=== PATIENT | female | born 1980 | race Asian ===

== ENCOUNTER 2017-09-28 08:00 | Outpatient (CLI) | payer OTHER ==
[2017-09-28 12:50] LABS: BUN - BLOOD UREA NITROGEN 14 mg/dL (6-20); CALCIUM 9.2 mg/dL (8.5-10.3); CARBON DIOXIDE - CO2 25 mmol/L (21-32); CHLORIDE 104 mmol/L (101-111); CREATININE 0.7 mg/dL (0.4-1.0); GFR - MDRD 93 (>89); GLUCOSE 74 mg/dL (70-100); SODIUM 136 mmol/L (135-145)
== END 2017-09-28 08:01 | disposition home or self-care (01) ==
LOC: LAB.WCP 08:00
PROVIDERS: ATTEND Family Medicine
DX: R00.2 Palpitations (principal)
CPT/HCPCS: 36415; 80048; 84443

== ENCOUNTER 2018-10-22 08:00 | Outpatient (CLI) | payer OTHER ==
[2018-10-22 12:34] LABS: BASOPHILS # (AUTO) 0.1 10^3/uL (0.0-0.1); BASOPHILS % (AUTO) 0.9 %; EOSINOPHILS % (AUTO) 0.4 %; HGB - HEMOGLOBIN 12.9 g/dL (12.0-16.0); LYMPHOCYTES % (AUTO) 27.3 %; MEAN CORPUSCULAR HEMOGLOBIN 26.8 pg (27.0-31.0); MEAN CORPUSCULAR HGB CONC 32.5 g/dL (32.0-36.0); MEAN CORPUSCULAR VOLUME 82.5 fL (81.0-99.0); MEAN PLATELET VOLUME 8.7 fL (7.9-10.8); MONOCYTES # (AUTO) 0.4 10^3/uL (0.0-1.0); MONOCYTES % (AUTO) 6.1 %; NEUTROPHILS # (AUTO) 4.7 10^3/uL (1.5-6.6); NEUTROPHILS % (AUTO) 65.3 %; PLT - PLATELET COUNT 227 10^3/uL (130-450); RED BLOOD COUNT 4.82 10^6/uL (4.20-5.40); RED CELL DISTRIBUTION WIDTH 12.9 % (12.0-15.0); WHITE BLOOD COUNT 7.2 x10^3/uL (4.8-10.8)
[2018-10-22 12:45] LABS: ALBUMIN 4.3 g/dL (3.2-5.5); ALBUMIN/GLOBULIN RATIO 1.2 (1.0-2.2); ALKALINE PHOSPHATASE 39 IU/L (42-121); ALT ALANINE AMINOTRANSFERASE 12 IU/L (10-60); AST ASPARTATE AMINOTRANSFERASE 16 IU/L (10-42); BILIRUBIN,TOTAL 0.9 mg/dL (0.2-1.0); BUN - BLOOD UREA NITROGEN 8 mg/dL (6-20); CALCIUM 9.4 mg/dL (8.5-10.3); CARBON DIOXIDE - CO2 26 mmol/L (21-32); CHLORIDE 100 mmol/L (101-111); CHOL/HDL RATIO 3.5 (<4.4); CHOLESTEROL 218 mg/dL; CREATININE 0.8 mg/dL (0.4-1.0); GFR - MDRD 79 (>89); GLUCOSE 94 mg/dL (70-100); HDL CHOLESTEROL 63 mg/dL; LDL CHOLESTEROL,CALCULATED 144 mg/dL; LDL/HDL RATIO 2.3 (<4.4); SODIUM 137 mmol/L (135-145); VLDL CHOLESTEROL 11 mg/dL
== END 2018-10-22 23:59 | disposition home or self-care (01) ==
LOC: LAB.WCP 08:00
PROVIDERS: ATTEND Family Medicine
DX: Z00.00 Encounter for general adult medical examination without abnormal findings (principal)
CPT/HCPCS: 36415; 80053; 80061; 83721; 85025

== ENCOUNTER 2021-02-14 16:25 | Outpatient (CLI) | payer OTHER | END 2021-02-14 16:26 | disposition home or self-care (01) | LOC: COV 16:25 | PROVIDERS: ATTEND Family Medicine | DX: Z20.822 Contact with and (suspected) exposure to COVID-19 (principal) ==

== ENCOUNTER 2022-07-04 09:02 | Outpatient (CLI) | payer OTHER ==
[2022-07-04 12:08] LABS: BASOPHILS % (AUTO) 0.5 %; EOSINOPHILS # (AUTO) 0.1 10^3/uL (0.0-0.7); EOSINOPHILS % (AUTO) 0.8 %; HCT - HEMATOCRIT 37.5 % (37.0-47.0); HGB - HEMOGLOBIN 11.6 g/dL (12.0-16.0); LYMPHOCYTES # (AUTO) 2.5 10^3/uL (1.5-3.5); LYMPHOCYTES % (AUTO) 42.7 %; MEAN CORPUSCULAR HEMOGLOBIN 24.7 pg (27.0-31.0); MEAN CORPUSCULAR HGB CONC 30.9 g/dL (32.0-36.0); MONOCYTES # (AUTO) 0.4 10^3/uL (0.0-1.0); MONOCYTES % (AUTO) 6.6 %; NEUTROPHILS # (AUTO) 2.9 10^3/uL (1.5-6.6); NEUTROPHILS % (AUTO) 49.1 %; PLT - PLATELET COUNT 269 10^3/uL (130-450); RED BLOOD COUNT 4.69 10^6/uL (4.20-5.40); RED CELL DISTRIBUTION WIDTH 14.6 % (12.0-15.0)
[2022-07-04 13:49] LABS: ALBUMIN 4.3 g/dL (3.2-5.5); ALBUMIN/GLOBULIN RATIO 1.1 (1.0-2.2); ALKALINE PHOSPHATASE 33 IU/L (42-121); ALT ALANINE AMINOTRANSFERASE 17 IU/L (10-60); AST ASPARTATE AMINOTRANSFERASE 17 IU/L (10-42); BILIRUBIN,TOTAL 0.8 mg/dL (0.2-1.0); BUN - BLOOD UREA NITROGEN 11 mg/dL (6-20); CALCIUM 9.7 mg/dL (8.5-10.3); CARBON DIOXIDE - CO2 23 mmol/L (21-32); CHLORIDE 101 mmol/L (101-111); CHOL/HDL RATIO 3.3 (<4.4); CHOLESTEROL 206 mg/dL; CREATININE 0.8 mg/dL (0.4-1.0); GFR - MDRD 78 (>89); GLUCOSE 88 mg/dL (70-100); HDL CHOLESTEROL 63 mg/dL; LDL CHOLESTEROL,CALCULATED 123 mg/dL; SODIUM 137 mmol/L (135-145); TOTAL PROTEIN 8.1 g/dL (6.7-8.2); TRIGLYCERIDES 98 mg/dL; VLDL CHOLESTEROL 20 mg/dL
[2022-07-04 13:55] LABS: THYROID STIMULATING HORMONE 0.99 uIU/mL (0.34-5.60)
== END 2022-07-04 09:03 | disposition home or self-care (01) ==
LOC: LAB.N 09:02
PROVIDERS: ATTEND Physician Assistant
DX: R03.0 Elevated blood-pressure reading, without diagnosis of hypertension (principal); Z13.220 Encounter for screening for lipoid disorders
CPT/HCPCS: 36415; 80053; 80061; 83721; 84443; 85025

== ENCOUNTER 2022-07-28 15:05 | Outpatient (CLI) | payer OTHER ==
--- NOTE | 2022-07-30 12:36 | Mammography Report ---
BILATERAL DIGITAL SCREENING MAMMOGRAM 3D/2D: 07/28/2022 CLINICAL: Baseline exam. Routine screening. No prior exams were available for comparison. Both breasts are heterogeneously dense, which may obscure small masses (category c / 51-75% glandular tissue). There is a 1.9 cm oval asymmetry with an obscured and circumscribed margin in the right breast at 12 o'clock anterior depth. No other significant masses, calcifications, or other findings are seen in either breast. IMPRESSION: INCOMPLETE: NEEDS ADDITIONAL IMAGING EVALUATION The 1.9 cm oval asymmetry in the right breast is indeterminate. Additional views with possible ultra sound are recommended. Based on the Tyrer Cuzick model (a risk assessment model) the patients lifetime risk is 9.5% and her 10 year risk is 1.6%. According to the ACR, ACS, and NCCN guidelines, an annual breast MRI exam coral g with mammogram is recommended if the patients lifetime risk is 20% or greater. This exam was interpreted at Station ID: [id number]. NOTE: For mammograms, a report in lay terms will be sent to the patient. Approximately 15% of breast malignancies will not be visualized mammographically. In the management of a palpable breast mass, a negative mammogram must not discourage biopsy of a clinically suspicious lesion. Electronically Signed By: Magalis madsen/:07/29/2022 10:26:32 ACR BI-RADS Category 0: Incomplete 3340F PARENCHYMAL PATTERN: (D) - The breast(s) demonstrate(s) heterogeneously dense fibroglandular parshellyy ma. BI-RADS CATEGORY: (0) - 0 Mammo and [place] [id number] Immediate follow-up LATERALITY: (B)
== END 2022-07-28 15:06 | disposition home or self-care (01) ==
LOC: DI.N 15:05
DX: Z12.31 Encounter for screening mammogram for malignant neoplasm of breast (principal); R92.8 Other abnormal and inconclusive findings on diagnostic imaging of breast

== ENCOUNTER 2022-08-08 10:44 | Outpatient (CLI) | payer OTHER ==
--- NOTE | 2022-08-11 11:44 | Ultrasound Report ---
LIMITED ULTRASOUND OF RIGHT BREAST: 08/08/2022 CLINICAL: Patient returns today to evaluate a focal asymmetry in the right breast. Comparison is made to exams dated: 08/08/2022 mammogram and 07/28/2022 mammogram - [facility]. Color flow and real-time ultrasound of the right breast 12 o'clock, and retroareolar regions were per formed. Holloway scale images of the real-time examination were reviewed. There is a 2.7 cm x 1.5 cm x 1 cm oval lobulated mass with a circumscribed margin in the right breast at 12 o'clock anterior depth 4 cm from the nipple. This oval mass is solid, hypoechoic and without posterior enhancement or shadow. This correlates with mammography findings. Color flow imaging demo nstrates that there is no vascularity present. There also is a cluster of 5 mm oval cystic masses in the right breast central to the nipple anterior depth. This cluster ranges from hypoechoic to anechoic with posterior acoustic enhancement. There may be adjacent or contiguous non-dilated ducts. These correlate with mammography findings. Color fl ow imaging demonstrates that there is no vascularity present. IMPRESSION: PROBABLY BENIGN The possible 2.7 cm fibroadenoma in the right breast at 12 o'clock anterior depth is probably benign. Option to biopsy was presented to the patient. 6 month follow up was decided upon and is recommende d. The cluster of 5 mm oval cysts in the right breast central to the nipple anterior depth may consist o f a complicated cyst, possible small fibroadenoma, or focal duct ectasia and is probably benign. A follow-up mammogram and an ultrasound in 6 months is recommended to demonstrate stability. Findings and recommendations were discussed with the patient in person by Dr. Kirby at time of exam . This exam was interpreted at Station ID: [id number]. Electronically Signed By: Magalis madsen/:08/08/2022 13:20:18 Ultrasound BI-RADS: 3 Probably benign BI-RADS CATEGORY: (3) - 3 Mammo and US [id number] 6 month follow-up LATERALITY: (B)
--- NOTE | 2022-08-11 11:44 | Mammography Report ---
UNILATERAL RIGHT DIGITAL DIAGNOSTIC MAMMOGRAM 3D/2D WITH SPOT COMPRESSION: 08/08/2022 CLINICAL: Patient returns today to evaluate a focal asymmetry in the right breast. Comparison is made to exam dated: 07/28/2022 mammogram - [facility]. The right breast is heterogeneously dense, which may obscure small masses (category c / 51-75% glandu lar tissue). There is a 2.2 cm oval focal asymmetry with a circumscribed margin in the right breast at 12 o'clock anterior depth. This is seen in additional views. There also is a cluster of oval equal density asymmetries with an obscured and circumscribed margin i n the right breast central to the nipple anterior depth. No other significant masses or calcifications are seen in the breast. IMPRESSION: INCOMPLETE: NEEDS ADDITIONAL IMAGING EVALUATION The 2.2 cm oval focal asymmetry in the right breast at 12 o'clock anterior depth most likely is a cys t or a fibroadenoma and is indeterminate. An ultrasound is recommended. The cluster of oval equal density asymmetries in the right breast central to the nipple anterior dept h most likely is clustered cysts or ductal ectasia and is indeterminate. An ultrasound is recommende d. Ultrasound of both areas was performed immediately following this exam. Based on the Tyrer Cuzick model (a risk assessment model) the patients lifetime risk is 10.4% and he r 10 year risk is 1.8%. According to the ACR, ACS, and NCCN guidelines, an annual breast MRI exam robbin ng with mammogram is recommended if the patients lifetime risk is 20% or greater. This exam was interpreted at Station ID: [id number]. NOTE: For mammograms, a report in lay terms will be sent to the patient. Approximately 15% of breast malignancies will not be visualized mammographically. In the management of a palpable breast mass, a negative mammogram must not discourage biopsy of a clinically suspicious lesion. Electronically Signed By: Magalis madsen/:08/08/2022 12:07:54 ACR BI-RADS Category 0: Incomplete 3340F PARENCHYMAL PATTERN: (D) - The breast(s) demonstrate(s) heterogeneously dense fibroglandular parenchy ma. BI-RADS CATEGORY: (0) - 0 Ultrasound [id number] Immediate follow-up LATERALITY: (B)
== END 2022-08-08 10:45 | disposition home or self-care (01) ==
LOC: DI 10:44
PROVIDERS: ATTEND Family Medicine
DX: R92.8 Other abnormal and inconclusive findings on diagnostic imaging of breast (principal); N60.11 Diffuse cystic mastopathy of right breast

== ENCOUNTER 2023-03-26 09:16 | Outpatient (CLI) | payer OTHER ==
--- NOTE | 2023-03-30 15:19 | Mammography Report ---
UNILATERAL RIGHT DIGITAL DIAGNOSTIC MAMMOGRAM 3D/2D: 03/26/2023 CLINICAL: Patient returns for a 6 month follow up of the right breast. Comparison is made to exams dated: 08/08/2022 mammogram, 07/28/2022 mammogram, and 08/08/2022 ultrasound - [facility]. The right breast is heterogeneously dense, which may obscure small masses (category c / 51-75% glandu lar tissue). There is a stable 7 mm oval focal asymmetry with a circumscribed margin in the right breast at 12 o'c lock anterior depth. There also is a cluster of oval asymmetries with an obscured and circumscribed margin in the right br east central to the nipple anterior depth. This is not significantly changed. No other significant masses or calcifications are seen in the breast. IMPRESSION: INCOMPLETE: NEEDS ADDITIONAL IMAGING EVALUATION The stable 7 mm oval focal asymmetry in the right breast at 12 o'clock anterior depth resembles a fib roadenoma and is indeterminate. The cluster of oval asymmetries in the right breast central to the nipple anterior depth most likely is clustered cysts or a fibroadenoma and is indeterminate. Findings appear stable. A targeted ultrasound is recommended. Based on the Tyrer Cuzick model (a risk assessment model) the patients lifetime risk is 10.4% and he r 10 year risk is 1.9%. According to the ACR, ACS, and NCCN guidelines, an annual breast MRI exam robbin ng with mammogram is recommended if the patients lifetime risk is 20% or greater. This exam was interpreted at Station ID: [id number]. NOTE: For mammograms, a report in lay terms will be sent to the patient. Approximately 15% of breast malignancies will not be visualized mammographically. In the management of a palpable breast mass, a negative mammogram must not discourage biopsy of a clinically suspicious lesion. Electronically Signed By: Corwin Reardon M.D. slc/:03/26/2023 10:27:43 ACR BI-RADS Category 0: Incomplete 3340F PARENCHYMAL PATTERN: (D) - The breast(s) demonstrate(s) heterogeneously dense fibroglandular parenchy ma. BI-RADS CATEGORY: (0) - 0 Ultrasound [id number] Immediate follow-up LATERALITY: (B)
== END 2023-03-26 09:17 | disposition home or self-care (01) ==
LOC: DI 09:16
PROVIDERS: ATTEND Physician Assistant
DX: R92.8 Other abnormal and inconclusive findings on diagnostic imaging of breast (principal); R92.331 Mammographic heterogeneous density, right breast

== ENCOUNTER 2023-04-03 13:55 | Outpatient (CLI) | payer OTHER ==
--- NOTE | 2023-04-06 12:16 | Ultrasound Report ---
LIMITED ULTRASOUND OF RIGHT BREAST: 04/03/2023 CLINICAL: Short term follow up of the right breast. Comparison is made to exams dated: 08/08/2022 ultrasound, 08/08/2022 mammogram, and 07/28/2022 mammogram - [facility]. Color flow ultrasound of the right breast 12 o'clock, and retroareolar regions was performed. Holloway s dang images of the real-time examination were reviewed. There is a possible stable 1.6 cm x 1.8 cm x 0.8 cm oval fibroadenoma with a circumscribed margin in the right breast at 12 o'clock anterior depth 4 cm from the nipple. This oval fibroadenoma is hypoec hoic. This correlates with mammography findings. There also is a stable cluster of 5 mm oval cysts in the right breast central to the nipple anterior depth. This cluster of 5 mm oval cysts is hypoechoic. These correlate with mammography findings. IMPRESSION: PROBABLY BENIGN The possible stable 1.6 cm x 1.8 cm x 0.8 cm oval fibroadenoma in the right breast at 12 o'clock ante rior depth is probably benign. The stable cluster of 5 mm oval cysts in the right breast central to the nipple anterior depth is con sistent with a complicated cyst and is probably benign. A follow-up ultrasound in 6 months is recommended to demonstrate stability. Patient was offered tissue sampling and opted for further followup. This exam was interpreted at Station ID: [id number]. Electronically Signed By: Jamie Ardon M.D. /:04/03/2023 14:41:22 Ultrasound BI-RADS: 3 Probably benign BI-RADS CATEGORY: (3) - 3 Ultrasound [id number] 6 month follow-up LATERALITY: (B)
== END 2023-04-03 13:56 | disposition home or self-care (01) ==
LOC: DI 13:55
PROVIDERS: ATTEND Physician Assistant
DX: R92.8 Other abnormal and inconclusive findings on diagnostic imaging of breast (principal); N60.11 Diffuse cystic mastopathy of right breast

== ENCOUNTER 2023-08-19 06:03 | Day surgery (SDC) | payer OTHER ==
[2023-08-19] MEDS: LACTATED RINGERS 1,000 ML IV ONE ×2 (06:09→07:49)
[2023-08-19 06:27] LABS: HCG UR QUAL NEGATIVE
--- NOTE | 2023-08-19 07:11 | ANESTHESIA ---
Pre-Anesthesia VS, & Labs - Diagnosis SCREENING - Procedure cOLONOSCOPY Vital Signs: Temp Pulse Resp BP Pulse Ox O2 Flow Rate 36.1 C L 79 16 144/96 H 99 08/19/23 06:10 08/19/23 06:10 08/19/23 06:10 08/19/23 06:10 08/19/23 06:10 Height: 5 ft 2 in Weight (kg): 69.5 kg Body Mass Index: 28.0 BMI Classification: Overweight - NPO Last Fluid Intake: 0100 Last Food Intake: >8HR - Is Patient ?: No Home Medications and Allergies Home Medications: Ambulatory Orders Losartan [Cozaar] 50 mg PO DAILY 08/19/23 Losartan [Cozaar] 50 mg PO DAILY 08/19/23 Allergies/Adverse Reactions: Allergies Allergy/AdvReac Type Severity Reaction Status Date / Time nifedipine Allergy Intermediate Rash Verified 08/19/23 06:38 Anes History & Medical History - Anesthetic History Anesthesia Complications: reports: No previous complications Family history of Anesthesia Complications: Denies - Medical History Cardiovascular: reports: Hypertension (DID NOT TAKE LOSARTAN TODAY) Pulmonary: reports: None Gastrointestinal: reports: None Urinary: reports: None Musculoskeletal: reports: None Endocrine/Autoimmune: reports: None Skin: reports: None Smoking Status: Never smoker Psychosocial: reports: No issues indicated - Surgical History Gynecologic: reports: Other Results - EKG Results EKG Comparison: Reviewed EKG Exam General: Alert Dental: WNL Mouth Openin Fingerbreadth Neck Mobility: Normal Mallampati classification: II Thyromental Distance: 4-6 cm Plan Anesthesia Type: Total IV Consent for Procedure(s) Verified and Reviewed: Yes Code Status: Attempt Resuscitation ASA classification: 2-Mild systemic disease Is this case an emergency?: No
[2023-08-19] MEDS ORDERED: LIDOCAINE-MPF 2% 5 ML VIAL ONE (07:22)
[2023-08-19] MEDS ORDERED: PROPOFOL 500 MG/50 ML 500 MG/50 ML VIAL ONE (07:22)
[2023-08-19] MEDS: SIMETHICONE 40 MG/0.6 ML 15 ML BOTTLE PO ONE (07:32)
[2023-08-19 08:15] VITALS: BP 111/86; O2SAT 100
--- NOTE | 2023-08-19 11:11 | ANESTHESIA POST OP EVALUATION ---
Anesthesia Post Eval - Post Anesthesia Eval Vitals: Last Vital Signs Temp 36.5 C 08/19/23 07:49 Pulse 76 08/19/23 08:01 Resp 16 08/19/23 08:01 BP 111/86 H 08/19/23 08:01 Pulse Ox 100 08/19/23 08:01 O2 Flow Rate CV Function Including HR & BP: Stable Pain Control: Satisfactory Nausea & Vomiting: Negative Mental Status: Baseline Respiratory Status: Airway Patent Hydration Status: Satisfactory Anesthesia Complications: None
== END 2023-08-19 06:04 | disposition home or self-care (01) ==
LOC: SDS 06:03
PROVIDERS: ATTEND Surgery
DX: Z12.11 Encounter for screening for malignant neoplasm of colon (principal); K63.89 Other specified diseases of intestine; I10 Essential (primary) hypertension; Z32.02 Encounter for pregnancy test, result negative
CPT/HCPCS: 45378; 81025; A9270; J7120

== ENCOUNTER 2023-11-27 12:10 | Outpatient (CLI) | payer OTHER ==
[2023-11-27 17:46] LABS: BASOPHILS % (AUTO) 0.3 %; EOSINOPHILS % (AUTO) 0.7 %; HCT - HEMATOCRIT 31.6 % (37.0-47.0); HGB - HEMOGLOBIN 9.5 g/dL (12.0-16.0); LYMPHOCYTES # (AUTO) 2.3 10^3/uL (1.5-3.5); LYMPHOCYTES % (AUTO) 38.6 %; MEAN CORPUSCULAR HEMOGLOBIN 21.4 pg (27.0-31.0); MEAN CORPUSCULAR HGB CONC 30.1 g/dL (32.0-36.0); MEAN CORPUSCULAR VOLUME 71.3 fL (81.0-99.0); MEAN PLATELET VOLUME 9.6 fL (7.9-10.8); MONOCYTES # (AUTO) 0.3 10^3/uL (0.0-1.0); MONOCYTES % (AUTO) 5.6 %; NEUTROPHILS # (AUTO) 3.2 10^3/uL (1.5-6.6); NEUTROPHILS % (AUTO) 54.3 %; PLT - PLATELET COUNT 335 10^3/uL (130-450); RED BLOOD COUNT 4.43 10^6/uL (4.20-5.40); RED CELL DISTRIBUTION WIDTH 16.9 % (12.0-15.0); WHITE BLOOD COUNT 5.9 x10^3/uL (4.8-10.8)
[2023-11-27 18:00] LABS: ALBUMIN 4.3 g/dL (3.2-5.5); ALBUMIN/GLOBULIN RATIO 1.3 (1.0-2.2); ALKALINE PHOSPHATASE 36 IU/L (42-121); ALT ALANINE AMINOTRANSFERASE 12 IU/L (10-60); AST ASPARTATE AMINOTRANSFERASE 15 IU/L (10-42); BILIRUBIN,TOTAL 0.5 mg/dL (0.2-1.0); BUN - BLOOD UREA NITROGEN 12 mg/dL (6-20); CALCIUM 9.6 mg/dL (8.5-10.3); CARBON DIOXIDE - CO2 29 mmol/L (21-32); CHLORIDE 102 mmol/L (101-111); CHOL/HDL RATIO 3.1 (<4.4); CHOLESTEROL 206 mg/dL; CREATININE 0.8 mg/dL (0.6-1.3); GFR - MDRD 78 (>89); GLUCOSE 92 mg/dL (74-104); HDL CHOLESTEROL 67 mg/dL; LDL CHOLESTEROL,CALCULATED 103 mg/dL; LDL/HDL RATIO 1.5 (<4.4); POTASSIUM 4.1 mmol/L (3.5-4.5); SODIUM 136 mmol/L (135-145); TOTAL PROTEIN 7.5 g/dL (6.4-8.9); TRIGLYCERIDES 178 mg/dL (48-352); VLDL CHOLESTEROL 36 mg/dL
== END 2023-11-27 12:11 | disposition home or self-care (01) ==
LOC: LAB.N 12:10
PROVIDERS: ATTEND Physician Assistant
DX: I10 Essential (primary) hypertension (principal); Z13.220 Encounter for screening for lipoid disorders; D50.9 Iron deficiency anemia, unspecified
CPT/HCPCS: 36415; 80053; 80061; 83721; 85025

== ENCOUNTER 2024-01-01 09:38 | Outpatient (CLI) | payer OTHER ==
[2024-01-01 12:02] LABS: ABSOLUTE RETICS # AUTO 0.104 10^6/uL (0.020-0.110); BASOPHILS % (AUTO) 0.7 %; EOSINOPHILS # (AUTO) 0.1 10^3/uL (0.0-0.7); EOSINOPHILS % (AUTO) 0.8 %; HCT - HEMATOCRIT 35.3 % (37.0-47.0); HGB - HEMOGLOBIN 10.3 g/dL (12.0-16.0); LYMPHOCYTES # (AUTO) 2.2 10^3/uL (1.5-3.5); LYMPHOCYTES % (AUTO) 36.5 %; MEAN CORPUSCULAR HEMOGLOBIN 21.4 pg (27.0-31.0); MEAN CORPUSCULAR HGB CONC 29.2 g/dL (32.0-36.0); MEAN CORPUSCULAR VOLUME 73.4 fL (81.0-99.0); MEAN PLATELET VOLUME 9.6 fL (7.9-10.8); MONOCYTES # (AUTO) 0.4 10^3/uL (0.0-1.0); MONOCYTES % (AUTO) 5.9 %; NEUTROPHILS # (AUTO) 3.4 10^3/uL (1.5-6.6); NEUTROPHILS % (AUTO) 55.9 %; PLT - PLATELET COUNT 337 10^3/uL (130-450); RED BLOOD COUNT 4.81 10^6/uL (4.20-5.40); RED CELL DISTRIBUTION WIDTH 20.1 % (12.0-15.0); RETICULOCYTE COUNT % (AUTO) 2.17 % (0.5-2.3); WHITE BLOOD COUNT 6.1 x10^3/uL (4.8-10.8)
[2024-01-01 12:45] LABS: FERRITIN 8.6 ng/mL (11.0-306.8)
== END 2024-01-01 09:39 | disposition home or self-care (01) ==
LOC: LAB.N 09:38
PROVIDERS: ATTEND Physician Assistant
DX: D50.9 Iron deficiency anemia, unspecified (principal)
CPT/HCPCS: 36415; 82607; 82728; 82746; 83540; 84466; 85025; 85045

== ENCOUNTER 2024-01-08 13:26 | Outpatient (CLI) | payer OTHER ==
--- NOTE | 2024-01-11 08:28 | Ultrasound Report ---
LIMITED ULTRASOUND OF RIGHT BREAST: 01/08/2024 CLINICAL: Patient returns for a 6 month follow up of the right breast. Comparison is made to exams dated: 04/03/2023 ultrasound, 03/26/2023 mammogram, 08/08/2022 ultrasound, 08/08/2022 mammogram, and 07/28/2022 mammogram - [facility]. Color flow and real-time ultrasound of the right breast 12 o'clock, and retroareolar regions were per formed. Holloway scale images of the real-time examination were reviewed. There is a possible stable 1.6 cm x 1.8 cm x 0.8 cm oval fibroadenoma with a circumscribed margin in the right breast at 12 o'clock anterior depth 4 cm from the nipple. This oval fibroadenoma is hypoec hoic. This correlates with mammography findings. Color flow imaging demonstrates that there is no v ascularity present. There also is a stable cluster of 5 mm oval cysts in the right breast central to the nipple anterior depth. This cluster of 5 mm oval cysts is hypoechoic. These correlate with mammography findings. IMPRESSION: PROBABLY BENIGN The possible stable 1.6 cm x 1.8 cm x 0.8 cm oval fibroadenoma in the right breast at 12 o'clock ante rior depth is probably benign. The stable cluster of 5 mm oval cysts in the right breast central to the nipple anterior depth is con sistent with a complicated cyst and is probably benign. A follow-up bilateral diagnostic mammogram and right breast ultrasound in 6 months is recommended to demonstrate stability. This exam was interpreted at Station ID: [id number]. Electronically Signed By: Juan Jose Kirby M.D. ar/:01/08/2024 21:42:04 Ultrasound BI-RADS: 3 Probably benign BI-RADS CATEGORY: (3) - 3 Mammo and US [id number] 6 month follow-up LATERALITY: (B)
== END 2024-01-08 13:27 | disposition home or self-care (01) ==
LOC: DI 13:26
PROVIDERS: ATTEND Physician Assistant
DX: R92.8 Other abnormal and inconclusive findings on diagnostic imaging of breast (principal); N60.01 Solitary cyst of right breast